=== PATIENT | female | born 1970 | race Caucasian/White ===

== ENCOUNTER 2018-08-20 18:41 | Emergency (ER) | payer MEDICAID, OTHER ==
[~2018-08-20] VITALS: Ht 154.9 cm; Wt 74.8 kg
[2018-08-20 18:52] VITALS: BP 114/74
[2018-08-20] MEDS ORDERED: BACITRACIN OINT 500 UNITS/GM PKT TP ONE (19:45)
[2018-08-20] MEDS ORDERED: LIDOCAINE 2% 1000 MG/50 ML VIAL INJ ONE (19:45)
[2018-08-20 20:30] VITALS: BP 110/86
== END 2018-08-20 20:31 | disposition home or self-care (01) ==
LOC: MED 18:41
DX: S41.111A Laceration without foreign body of right upper arm, initial encounter (principal); F17.200 Nicotine dependence, unspecified, uncomplicated; V89.2XXA Person injured in unspecified motor-vehicle accident, traffic, initial encounter; Y93.89 Activity, other specified; Y92.89 Other specified places as the place of occurrence of the external cause; Y99.8 Other external cause status
CPT/HCPCS: 12002; 90471; 90715; 99283; J2001

== ENCOUNTER 2019-09-19 02:33 | Emergency (ER) | payer OTHER ==
[~2019-09-19] VITALS: Ht 154.9 cm; Wt 63.5 kg
[2019-09-19 02:39] VITALS: BP 137/74
--- NOTE | 2019-09-19 02:47 | NUR ---
AMBULATES TO BED 02 WITH STEADY UPRIGHT GAIT.
--- NOTE | 2019-09-19 02:47 | NUR ---
49 Y/O FEMALE FELL ON UNEVEN PAVEMENT LAST NIGHT 2199. LANDED ON LEFT SIDE FACE. C/O 04/15 CULVER, NECK AND LEFT EYE PAIN PT STATES, "I FELL AND LANDED ON THE LEFT SIDE OF MY FACE AND NOW I HAVE A BRUISE ON MY EYE. BRUISING, SWELLING NOTED TO LEFT EYELID. DENIES CHANGE IN VISION. DID NOT MEDICATE AT HOME. PERRLA +3; A/OX4 FOLLOWS COMMANDS; [employer] 15. PAIN UPON PALPATING LEFT EYE.HAND BUSINESS OPERATIONS SPECIALIST STRONG. ERMD MADE AWARE OF STATUS PMX:DENIES RX:DENIES NKDA
--- NOTE | 2019-09-19 03:07 | NUR ---
ERMD EVALUATING PATIENT AT THIS TIME.
[2019-09-19] MEDS ORDERED: KETOROLAC 60 MG/2 ML VIAL IM ONE (03:10)
[2019-09-19 03:32] VITALS: BP 129/73
--- NOTE | 2019-09-19 03:32 | NUR ---
Patient discharged with v/s stable. Written and verbal after care instructions given and explained. Patient alert, oriented and verbalized understanding of instructions. Ambulatory with steady gait. All questions addressed prior to discharge. ID band removed. Patient advised to follow up with PMD. Rx of ROBAXIN; MOTRIN given. Patient educated on indication of medication including possible reaction and side effects. Opportunity to ask questions provided and answered.
== END 2019-09-19 03:32 | disposition home or self-care (01) ==
LOC: MED 02:33
DX: S16.1XXA Strain of muscle, fascia and tendon at neck level, initial encounter (principal); S00.12XA Contusion of left eyelid and periocular area, initial encounter; X58.XXXA Exposure to other specified factors, initial encounter; Y93.89 Activity, other specified; Y92.89 Other specified places as the place of occurrence of the external cause; Y99.8 Other external cause status
CPT/HCPCS: 96372; 99283; J1885

== ENCOUNTER 2021-05-19 01:51 | Emergency (ER) | payer OTHER ==
[~2021-05-19] VITALS: Ht 154.9 cm; Wt 68.0 kg
[2021-05-19 01:56] VITALS: BP 151/84
--- NOTE | 2021-05-19 03:14 | NUR ---
Patient discharged with v/s stable. Written and verbal after care instructions given and explained. Patient verbalized understanding. Ambulatory with steady gait. All questions addressed prior to discharge. Advised to follow up with PMD.
== END 2021-05-19 03:14 | disposition home or self-care (01) ==
LOC: MED 01:51
DX: S09.90XA Unspecified injury of head, initial encounter (principal); X58.XXXA Exposure to other specified factors, initial encounter; Y93.89 Activity, other specified; Y92.89 Other specified places as the place of occurrence of the external cause; Y99.8 Other external cause status
CPT/HCPCS: 99281

== ENCOUNTER 2021-09-11 02:00 | Emergency (ER) | payer OTHER ==
[~2021-09-11] VITALS: Ht 154.9 cm; Wt 78.0 kg
[2021-09-11 02:06] VITALS: BP 153/83
[2021-09-11 02:30] VITALS: BP 153/83
--- NOTE | 2021-09-11 02:30 | NUR ---
SEE COMPLETE ASSESSMENT
--- NOTE | 2021-09-11 03:24 | NUR ---
PT EXAMINED BY DR. RODARTE
[2021-09-11] MEDS ORDERED: KETOROLAC 60 MG/2 ML VIAL IM ONE (03:30)
[2021-09-11] MEDS ORDERED: NAPR-54 PO (04:02)
== END 2021-09-11 04:06 | disposition home or self-care (01) ==
LOC: MED 02:00
DX: M43.6 Torticollis (principal); F17.210 Nicotine dependence, cigarettes, uncomplicated
CPT/HCPCS: 96372; 99283; J1885